=== PATIENT | male | born 1980 | race Caucasian/White ===

== ENCOUNTER 2017-12-12 19:12 | Emergency (ER) | payer SELFPAY ==
[2017-12-12] MEDS ORDERED: Morphine 4 MG/ML VIAL ONE (19:24)
[2017-12-12] MEDS ORDERED: Morphine 2 MG/ML SYRINGE ONE (19:24)
[2017-12-12] MEDS ORDERED: Ondansetron HCl/PF 4 MG/2 ML Vial ONE (19:24)
[2017-12-12 19:45] LABS: #Eosinphils 0.1 thou/uL (0.0-0.7); #Lymphocytes 3.1 thou/uL (1.20-3.40); #Monocytes 0.9 thou/uL (0.11-0.59); #Neutrophils 4.5 thou/uL (1.40-6.50); %Basophils 0.5 % (0.0-1.0); %Eosinophils 1.4 % (0.0-10.0); %Lymphocytes 35.9 % (21.0-51.0); %Monocytes 9.8 % (0.0-10.0); %Neutrophils 52.3 % (42.0-75.0); Hemoglobin 14.3 g/dL (14.0-18.0); Mean Corpuscular HGB CONC 32.9 g/dL (32.0-36.0); Mean Corpuscular Hemoglobin 29.6 pg (27.0-31.0); Mean Corpuscular Volume 90.1 fl (80.0-94.0); Mean Platelet Volume 6.3 fL (7.4-10.4); Platelet Count 293 thou/uL (130-400); RBC Distribution Width 11.8 % (11.5-14.5); Red Blood Cell (RBC) Count 4.83 mill/uL (4.70-6.10); White Blood Cell (WBC) Count 8.6 thou/uL (4.8-10.8)
[2017-12-12] MEDS ORDERED: CEFAZOLIN 1 GM, Syringe 2.5 ML in Sterile Water 7.5 ML SLOW IVP SCH (20:00)
[2017-12-12 20:08] LABS: Anion Gap 17 mmol/L (10-20); BUN (Urea Nitrogen) 11 mg/dL (8.9-20.6); Calc. Creatinine Clearance 0 mL/min (70-130); Calcium 9.8 mg/dL (7.8-10.44); Carbon Dioxide 23 mmol/L (22-29); Chloride 103 mmol/L (98-107); Estimated GFR-MDRD 69; Glucose 123 mg/dL (70-105); Sodium 140 mmol/L (136-145)
--- NOTE | 2017-12-12 20:09 | RAD ---
LEFT THUMB TWO VIEWS: 12/12/17 HISTORY: Trauma to left thumb, left thumb pain, severed portion of left thumb with table saw. FINDINGS/IMPRESSION: There is a fracture dislocation involving the first metacarpophalangeal joint and fracture of the sha ft and base of the proximal phalanx of the left thumb with displacement on the fracture fragments. POS: [facility]
[2017-12-12] MEDS ORDERED: HYDROmorphone 0.5 MG/0.5 ML SYRINGE ONE (20:24)
[2017-12-12] MEDS ORDERED: D5 1/2 NS w/40 mEq KCL 1,000 ML IV SCH (21:15)
--- NOTE | 2017-12-13 07:19 | CON ---
DATE OF CONSULTATION: 12/12/2017 HISTORY OF PRESENT ILLNESS: Mr. Lamas is a 37-year-old male, who was consulted by [facility], and Dr. Gonzalez. The patient presented after a table saw injury to his left hand. The patient is a right hand dominant male. He was working today. He presented about 07:13 this evening and states all injury to his left thumb that went through into the bone and exposed a gross deformity of his thumb. The patient received antibiotics in the ER and had been washed out, was consulted for evaluation for need for surgical management and possible transfer. PAST MEDICAL HISTORY: None. PAST SURGICAL HISTORY: None. ALLERGIES: No known drug allergies. MEDICATIONS: None. SOCIAL HISTORY: Significant for a [id number]-day smoker, history of marijuana use, history of methamphetamine use. REVIEW OF SYSTEMS: Noncontributory. PHYSICAL EXAMINATION: VITAL SIGNS: The patient's vitals are 22, 97.5. Pain 10/10. 102 rate, 92-90% on room air with 138/73. GENERAL: Alert and oriented male in no acute distress. EXTREMITIES: Focus exam of the patient's left upper extremity shows a laceration that went through the patient's thumb at the MCP right at the level of the patient's first phalanx with an oblique laceration with a medial skin flap intact. The patient had sensation on the ulnar border of his thumb, had some diminished sensation on the radial border. He did have brisk cap refill and dopplerable pulses felt on the ulnar border. He was able to flex his thumb , so a portion of the FPL was still intact. He is unable to extend his thumb and you can see an exposed MCP as well as the fragment of the patient's P1 that was broken. RADIOGRAPHS: Show a fracture dislocation at the P1 of his thumb with a comminuted segment with no obvious IP joint injury or P2 injury or metacarpal injury. IMPRESSION: 1. Left thumb partial amputation with intact ulnar bundle, neurovascular bundle with brisk cap refill. 2. Extensor pollicis longus injury, FPL, appears intact on exam. The patient has an open first MCP with a comminuted fracture at the base of his P1 of his thumb. ASSESSMENT AND PLAN: The patient was placed into the thumb spica splint. He had good capillary refill, after this he was in a stable position and more comfortable. I discussed with the transferring physician at the [facility] and developed a plan for transfer by ground for his left arm. The patient will be followed in-house. The patient will be transferred for definitive care to [facility]. [facility]
== END 2017-12-12 23:09 | disposition short-term general hospital (02) ==
LOC: ERS 19:12
DX: S68.022A Partial traumatic metacarpophalangeal amputation of left thumb, initial encounter (principal); F17.210 Nicotine dependence, cigarettes, uncomplicated; Z71.6 Tobacco abuse counseling; W31.2XXA Contact with powered woodworking and forming machines, initial encounter
CPT/HCPCS: 29125; 80048; 85025; 96361; 96365; 96375; 99406; A4216; J0690; J1170; J2270; J2405